=== PATIENT | female | born 1955 | race American Indian/Alaskan Native ===

== ENCOUNTER 2018-12-02 06:14 | Day surgery (SDC) | payer MEDICARE ==
[2018-12-02] MEDS ORDERED: WATER FOR IRRIG STERILE IR ONE (07:40)
[2018-12-02] MEDS ORDERED: WATER FOR IRRIG STERILE ONE (07:40)
--- NOTE | 2018-12-02 07:46 | Anesthesia Day of Surgery ---
Anesthesia Day of Surgery - Day of Surgery Patient Examined: Yes Patient H&P Reviewed: Yes Patient is NPO: Yes
--- NOTE | 2018-12-02 07:51 | Anesthesia Consultation ---
Anesthesia Consult and Med Hx Date of service: 12/02/18 - Airway Anesthetic Teeth Evaluation: Poor ROM Head & Neck: Adequate Mental/Hyoid Distance: Adequate Mallampati Class: Class II Intubation Access Assessment: Probably Good - Pre-Operative Health Status ASA Pre-Surgery Classification: ASA4 Proposed Anesthetic Plan: MAC - Pulmonary Hx Smoking: Yes (quit 1994) Hx Asthma: Yes Hx Respiratory Symptoms: Yes (history PE, coumadin stopped 5 days ago per pt) Hx Pneumonia: Yes - Cardiovascular System Hx Hypertension: Yes (high cholesterol) Hx Heart Murmur: Yes - Central Nervous System Hx Neuromuscular Disorder: Yes (right shoulder pain, migraines) Hx Seizures: Yes (last 07/29) - Gastrointestinal Hx Gastroesophageal Reflux Disease: Yes - Endocrine Hx Renal Disease: Yes Hx End Stage Renal Disease: Yes (dialysis tue,thur,sat) Hx Non-Insulin Dependent Diabetes: Yes
[2018-12-02] MEDS ORDERED: DIPRIVAN 10 MG/ML IV ONE ×3 (07:56)
[2018-12-02] MEDS ORDERED: XYLOCAINE 1% 20 mL ONE (07:56)
[2018-12-02] MEDS ORDERED: NACL 0.9% 1000 ML 1,000 ML IV SCH (08:00)
[2018-12-02 10:25] VITALS: BP 150/69
== END 2018-12-02 06:15 | disposition home or self-care (01) ==
LOC: GIO 06:14
PROVIDERS: ATTEND Internal Medicine Gastroenterology
DX: K64.8 Other hemorrhoids (principal); K30 Functional dyspepsia; K92.1 Melena; R63.4 Abnormal weight loss; I12.9 Hypertensive chronic kidney disease with stage 1 through stage 4 chronic kidney disease, or unspecified chronic kidney disease; N18.6 End stage renal disease; E11.22 Type 2 diabetes mellitus with diabetic chronic kidney disease; E78.00 Pure hypercholesterolemia, unspecified; J45.909 Unspecified asthma, uncomplicated; K21.9 Gastro-esophageal reflux disease without esophagitis; Z88.0 Allergy status to penicillin; Z88.2 Allergy status to sulfonamides; Z91.040 Latex allergy status; Z79.01 Long term (current) use of anticoagulants; Z79.899 Other long term (current) drug therapy; Z79.4 Long term (current) use of insulin; Z87.891 Personal history of nicotine dependence; Z90.49 Acquired absence of other specified parts of digestive tract; Z90.710 Acquired absence of both cervix and uterus; Z98.891 History of uterine scar from previous surgery; Z99.2 Dependence on renal dialysis; Z98.890 Other specified postprocedural states; Z88.8 Allergy status to other drugs, medicaments and biological substances
CPT/HCPCS: 43239; 45378; 82962; 88305; 88342; J2704; J7030